=== PATIENT | male | born 1965 | race African-American/Black ===

== ENCOUNTER 2017-06-27 22:08 | Inpatient (IN) | payer MEDICAID, OTHER ==
[~2017-06-27] VITALS: Ht 170.2 cm; Wt 58.1 kg
[~2017-06-27 22:08] MED LIST: DIVA500T35 PO; OLAN10TA6 PO; TOPI25 PO
[2017-06-28] MEDS ORDERED: ZOLPIDEM TARTRATE 10 MG TABLET PO PRN (00:15)
[2017-06-28] MEDS ORDERED: LORazepam 2 MG TABLET PO PRN (00:15)
[2017-06-28] MEDS ORDERED: OLANZapine 5 MG RAPDIS TABLET PO PRN (00:15)
[2017-06-28 00:29] LABS: BASOPHILS # (AUTO) 0.03 K/uL (0.00-0.20); BASOPHILS % (AUTO) 0.3 % (0.0-2.0); EOSINOPHILS % (AUTO) 1.16 % (1.0-6.0); HEMATOCRIT 41.4 % (41-53); HEMOGLOBIN 13.6 g/dL (13.5-17.5); LYMPHOCYTES # (AUTO) 1.7 K/uL (1.0-4.8); LYMPHOCYTES % (AUTO) 19.9 % (22.0-44.0); MEAN CORPUSCULAR HEMOGLOBIN 28.8 pg (26.0-34.0); MEAN CORPUSCULAR HGB CONC 32.9 G/dL (31.0-37.0); MEAN CORPUSCULAR VOLUME 88 fL (80-100); MONOCYTES % (AUTO) 12.1 % (2.0-9.0); NEUTROPHILS # (AUTO) 5.6 K/uL (1.8-7.7); NEUTROPHILS % (AUTO) 66.6 % (40.0-70.0); PLATELET COUNT (AUTO) 298 K/uL (150-450); RED BLOOD CELL COUNT(AUTO) 4.72 MIL/uL (4.50-5.90)
[2017-06-28 00:36] LABS: ANION GAP 7 mmol/L (8-16); CALCIUM, TOTAL 9.3 mg/dL (8.8-10.5); CARBON DIOXIDE 29 mmol/L (22-29); CHLORIDE 101 mmol/L (98-107); CREATININE 0.44 mg/dL (0.60-1.30); GLOMERULAR FILTR. RATE CALC > 60 mL/min (>60); GLUCOSE,RANDOM 86 mg/dL (70-110); POTASSIUM 3.8 mmol/L (3.5-5.1); SODIUM SERUM 137 mmol/L (136-145); UREA NITROGEN, BLOOD 9 mg/dL (7-18)
[2017-06-28] MEDS ORDERED: LORazepam 2 MG TABLET PO ONE (00:45)
[2017-06-28] MEDS ORDERED: DiphenhydrAMINE HCL 25 MG CAPSULE PO ONE (00:45)
[2017-06-28] MEDS ORDERED: OLANZapine 5 MG TABLET PO ONE (00:45)
[2017-06-28 00:47] LABS: ALANINE AMINOTRANSFERASE 45 U/L (12-78); ALBUMIN 3.7 g/dL (3.4-5.0); ALKALINE PHOSPHATASE 100 U/L (46-116); ASPARTATE AMINOTRANSFERASE 25 U/L (15-37); BILIRUBIN,TOTAL 0.6 mg/dL (0.1-1.0); TOTAL PROTEIN, SERUM 7.3 g/dL (6.4-8.2)
[2017-06-28 02:11] LABS: CHOL/HDL RATIO 2.7 (4.2-7.3); CHOLESTEROL 186 mg/dL (131-200); HDL CHOLESTEROL 69 mg/dL (40-60); LDL CHOL (CALC.) 108 mg/dL (0-130); TRIGLYCERIDES 46 mg/dL (15-150)
[2017-06-28] MEDS ORDERED: MAG HYDROX/AL HYDROX/SIMETH ES 30 ML SUSPENSION UDCUP PO PRN (11:00)
[2017-06-28] MEDS ORDERED: MAGNESIUM HYDROXIDE SUSPENSION 30 ML UDCUP PO PRN (11:00)
[2017-06-28] MEDS ORDERED: ACETAMINOPHEN 325 MG TABLET PO PRN (11:00)
[2017-06-28] MEDS ORDERED: HydrOXYzine PAMOATE 50 MG CAPSULE PO PRN (11:00)
[2017-06-28] MEDS ORDERED: GuaiFENesin/D-METHORPHAN [SUGAR-FREE] 200-20MG/10 ML SYRUP UDCUP PO PRN (11:00)
[2017-06-28] MEDS ORDERED: PROMETHAZINE HCL 25 MG TABLET PO PRN (11:00)
[2017-06-28] MEDS ORDERED: TUBERCULIN, PURIFIED PROTEIN DERIVATIVE 5 TU/0.1 ML SYG ID ONE (11:00)
[2017-06-28] MEDS ORDERED: LOPERAMIDE HCL 2 MG CAPSULE PO PRN (11:00)
[2017-06-28] MEDS ORDERED: INFLUENZA VIRUS VACCINE QVS 2017-18 (3YR+)/PF 60 MCG/0.5 ML SYRINGE IM ONE (15:15)
[2017-06-28] MEDS ORDERED: PNEUMOCOCCAL VACCINE POLYVALENT 0.5 ML VIAL [PPSV23] IM ONE (15:15)
[2017-06-28 16:00] VITALS: BP 108/78
[2017-06-28] MEDS: THIAMINE HCL 100 MG TABLET PO SCH (17:25)
[2017-06-28] MEDS: DIVALPROEX SODIUM 500 MG ER TABLET PO SCH ×2 (21:00→21:06)
[2017-06-28] MEDS: OLANZapine 5 MG RAPDIS TABLET PO SCH ×2 (21:00→21:06)
[2017-06-29 06:19] VITALS: BP 113/80
[2017-06-29] MEDS: MULTIVITAMINS WITH MINERALS, THERAPEUTIC TABLET PO SCH (08:54)
[2017-06-29] MEDS: THIAMINE HCL 100 MG TABLET PO SCH ×2 (08:55→16:19)
[2017-06-29] MEDS: FOLIC ACID 1 MG TABLET PO SCH (08:55)
[2017-06-29] MEDS: NALTREXONE HCL 50 MG TABLET PO SCH (08:55)
[2017-06-29 09:00] VITALS: BP 121/78
[2017-06-29 16:00] VITALS: BP 140/90
[2017-06-29] MEDS: DIVALPROEX SODIUM 500 MG ER TABLET PO SCH ×2 (20:26→21:00)
[2017-06-29] MEDS: OLANZapine 5 MG RAPDIS TABLET PO SCH ×2 (20:26→21:00)
[2017-06-29] MEDS ORDERED: OLANZapine 5 MG RAPDIS TABLET PO SCH (21:00)
[2017-06-30] MEDS: FOLIC ACID 1 MG TABLET PO SCH (09:46)
[2017-06-30] MEDS: NALTREXONE HCL 50 MG TABLET PO SCH (09:46)
[2017-06-30] MEDS: THIAMINE HCL 100 MG TABLET PO SCH ×2 (09:46→17:34)
[2017-06-30] MEDS: MULTIVITAMINS WITH MINERALS, THERAPEUTIC TABLET PO SCH (09:46)
[2017-06-30 16:30] VITALS: BP 140/86
[2017-06-30] MEDS: OLANZapine 5 MG RAPDIS TABLET PO SCH (21:02)
[2017-06-30] MEDS: DIVALPROEX SODIUM 500 MG ER TABLET PO SCH (21:02)
[2017-07-01 07:04] VITALS: BP 197/130
[2017-07-01] MEDS ORDERED: CloNIDine HCL 0.1 MG TABLET PO PRN (07:45)
[2017-07-01] MEDS: THIAMINE HCL 100 MG TABLET PO SCH ×2 (09:07→17:34)
[2017-07-01] MEDS: MULTIVITAMINS WITH MINERALS, THERAPEUTIC TABLET PO SCH (09:07)
[2017-07-01] MEDS: AmLODIPine BESYLATE 10 MG TABLET PO SCH (09:07)
[2017-07-01] MEDS: NALTREXONE HCL 50 MG TABLET PO SCH (09:07)
[2017-07-01] MEDS: FOLIC ACID 1 MG TABLET PO SCH (09:07)
[2017-07-01 09:29] VITALS: BP 129/79
[2017-07-01 16:19] VITALS: BP 125/84
[2017-07-01] MEDS: DIVALPROEX SODIUM 500 MG ER TABLET PO SCH (21:24)
[2017-07-01] MEDS: OLANZapine 5 MG RAPDIS TABLET PO SCH (21:24)
[2017-07-02 01:26] VITALS: BP 121/83
[2017-07-02 08:29] VITALS: BP 141/97
[2017-07-02] MEDS: MULTIVITAMINS WITH MINERALS, THERAPEUTIC TABLET PO SCH (09:09)
[2017-07-02] MEDS: NALTREXONE HCL 50 MG TABLET PO SCH (09:09)
[2017-07-02] MEDS: AmLODIPine BESYLATE 10 MG TABLET PO SCH (09:09)
[2017-07-02] MEDS: THIAMINE HCL 100 MG TABLET PO SCH ×2 (09:09→16:55)
[2017-07-02] MEDS: FOLIC ACID 1 MG TABLET PO SCH (09:09)
[2017-07-02 17:13] VITALS: BP 140/82
[2017-07-02] MEDS: DIVALPROEX SODIUM 500 MG ER TABLET PO SCH ×2 (21:00→21:49)
[2017-07-02] MEDS: OLANZapine 5 MG RAPDIS TABLET PO SCH ×2 (21:00→21:49)
[2017-07-03 06:44] VITALS: BP 111/66
[2017-07-03 08:37] VITALS: BP 111/74
[2017-07-03] MEDS: FOLIC ACID 1 MG TABLET PO SCH (09:27)
[2017-07-03] MEDS: AmLODIPine BESYLATE 10 MG TABLET PO SCH (09:27)
[2017-07-03] MEDS: MULTIVITAMINS WITH MINERALS, THERAPEUTIC TABLET PO SCH (09:27)
[2017-07-03] MEDS: THIAMINE HCL 100 MG TABLET PO SCH ×2 (09:27→16:11)
[2017-07-03] MEDS: NALTREXONE HCL 50 MG TABLET PO SCH (09:27)
[2017-07-03 16:00] VITALS: BP 137/90
[2017-07-03] MEDS: DIVALPROEX SODIUM 500 MG ER TABLET PO SCH (20:47)
[2017-07-03] MEDS: OLANZapine 5 MG RAPDIS TABLET PO SCH (20:48)
[2017-07-04 06:03] VITALS: BP 130/86
[2017-07-04] MEDS: AmLODIPine BESYLATE 10 MG TABLET PO SCH (09:03)
[2017-07-04] MEDS: THIAMINE HCL 100 MG TABLET PO SCH ×2 (09:03→16:23)
[2017-07-04] MEDS: NALTREXONE HCL 50 MG TABLET PO SCH (09:03)
[2017-07-04] MEDS: FOLIC ACID 1 MG TABLET PO SCH (09:03)
[2017-07-04] MEDS: MULTIVITAMINS WITH MINERALS, THERAPEUTIC TABLET PO SCH (09:03)
[2017-07-04 10:03] VITALS: BP 107/65
[2017-07-04 16:14] VITALS: BP 108/73
[2017-07-04] MEDS: DIVALPROEX SODIUM 500 MG ER TABLET PO SCH (21:20)
[2017-07-04] MEDS: OLANZapine 10 MG RAPDIS TABLET PO SCH (21:21)
[2017-07-05 06:27] VITALS: BP 105/68
[2017-07-05 08:22] VITALS: BP 105/70
[2017-07-05] MEDS: NALTREXONE HCL 50 MG TABLET PO SCH (09:17)
[2017-07-05] MEDS: MULTIVITAMINS WITH MINERALS, THERAPEUTIC TABLET PO SCH (09:17)
[2017-07-05] MEDS: FOLIC ACID 1 MG TABLET PO SCH (09:17)
[2017-07-05] MEDS: AmLODIPine BESYLATE 10 MG TABLET PO SCH (09:17)
[2017-07-05] MEDS: THIAMINE HCL 100 MG TABLET PO SCH ×2 (09:17→16:55)
[2017-07-05 16:39] VITALS: BP 110/52
[2017-07-05] MEDS: DIVALPROEX SODIUM 500 MG ER TABLET PO SCH (20:34)
[2017-07-05] MEDS: OLANZapine 10 MG RAPDIS TABLET PO SCH (20:34)
[2017-07-06 00:15] VITALS: BP 105/65
[2017-07-06 08:16] VITALS: BP 120/70
[2017-07-06] MEDS: FOLIC ACID 1 MG TABLET PO SCH (09:08)
[2017-07-06] MEDS: NALTREXONE HCL 50 MG TABLET PO SCH (09:08)
[2017-07-06] MEDS: MULTIVITAMINS WITH MINERALS, THERAPEUTIC TABLET PO SCH (09:08)
[2017-07-06] MEDS: THIAMINE HCL 100 MG TABLET PO SCH ×2 (09:08→16:42)
[2017-07-06] MEDS: AmLODIPine BESYLATE 10 MG TABLET PO SCH (09:08)
[2017-07-06] MEDS: OLANZapine 10 MG RAPDIS TABLET PO SCH (20:05)
[2017-07-06] MEDS: DIVALPROEX SODIUM 500 MG ER TABLET PO SCH (20:05)
[2017-07-07 07:04] VITALS: BP 110/68
[2017-07-07] MEDS ORDERED: OLAN10TA6 PO (08:01)
[2017-07-07] MEDS ORDERED: AMLO-512 PO (08:01)
[2017-07-07] MEDS ORDERED: NALT50TA6 PO (08:01)
[2017-07-07 08:19] VITALS: BP 111/72
[2017-07-07] MEDS: MULTIVITAMINS WITH MINERALS, THERAPEUTIC TABLET PO SCH (08:24)
[2017-07-07] MEDS: FOLIC ACID 1 MG TABLET PO SCH (08:24)
[2017-07-07] MEDS: THIAMINE HCL 100 MG TABLET PO SCH ×2 (08:24→16:06)
[2017-07-07] MEDS: NALTREXONE HCL 50 MG TABLET PO SCH (08:24)
[2017-07-07] MEDS: AmLODIPine BESYLATE 10 MG TABLET PO SCH (08:24)
[2017-07-07 16:05] VITALS: BP 100/61
== END 2017-07-07 16:10 | disposition home or self-care (01) | DRG 750 ==
LOC: EMS 22:32 → B2S 06-28 09:45
PROVIDERS: ADMIT Psychiatry & Neurology Psychiatry; ATTEND Psychiatry & Neurology Psychiatry
PROC: 3E0234Z Introduction of Serum, Toxoid and Vaccine into Muscle, Percutaneous Approach (ICD-10-PCS; principal; 2017-06-28)
DX: F20.0 Paranoid schizophrenia (principal); Z91.14 Patient's other noncompliance with medication regimen; I10 Essential (primary) hypertension; F17.210 Nicotine dependence, cigarettes, uncomplicated; F15.90 Other stimulant use, unspecified, uncomplicated; F14.90 Cocaine use, unspecified, uncomplicated; F12.90 Cannabis use, unspecified, uncomplicated; Z79.899 Other long term (current) drug therapy; Z88.8 Allergy status to other drugs, medicaments and biological substances; Z23 Encounter for immunization
CPT/HCPCS: 99285; G0480

== ENCOUNTER 2017-11-25 16:02 | Emergency (ER) | payer MEDICAID, OTHER ==
[~2017-11-25] VITALS: Ht 170.2 cm; Wt 70.0 kg
[~2017-11-25 16:02] MED LIST changes: +AMLO-512 PO; +NALT50TA6 PO; -TOPI25 PO
[2017-11-25 16:09] VITALS: BP 120/76
[2017-11-25 18:04] LABS: AMPHET/METH SCREEN,URINE NEGATIVE (NEGATIVE); BARBITURATE SCREEN, URINE NEGATIVE (NEGATIVE); BENZODIAZEPINES SCREEN,URINE NEGATIVE (NEGATIVE); CANNABINOID SCREEN,URINE NEGATIVE (NEGATIVE); COCAINE SCREEN,URINE NEGATIVE (NEGATIVE); METHADONE SCREEN, URINE NEGATIVE (NEGATIVE); OPIATE SCREEN,URINE NEGATIVE (NEGATIVE)
[2017-11-25 18:09] LABS: PHENCYCLIDINE SCREEN,URINE NEGATIVE (NEGATIVE)
[2017-11-25 18:13] LABS: APPEARANCE,URINE CLOUDY (CLEAR); BILIRUBIN,URINE NEGATIVE (NEGATIVE); GLUCOSE, URINE (UA) NEGATIVE (NEGATIVE); KETONES,URINE NEGATIVE (NEGATIVE); LEUKOCYTE ESTERASE ,URINE NEGATIVE (NEGATIVE); NITRATE,URINE NEGATIVE (NEGATIVE); OCCULT BLOOD,URINE NEGATIVE (NEGATIVE); PH,URINE 5.5 (5.0-8.0); PROTEIN,URINE NEGATIVE (NEGATIVE); UROBILINOGEN,URINE 0.2 mg/dL (<=1.0)
[2017-11-25 18:41] LABS: BASOPHILS % (AUTO) 0.4 % (0.0-2.0); EOSINOPHILS % (AUTO) 0.1 % (1.0-6.0); HEMATOCRIT 45.6 % (41-53); HEMOGLOBIN 15.5 g/dL (13.5-17.5); LYMPHOCYTES # (AUTO) 1.2 K/uL (1.0-4.8); LYMPHOCYTES % (AUTO) 10.4 % (22.0-44.0); MEAN CORPUSCULAR HEMOGLOBIN 28.7 pg (26.0-34.0); MEAN CORPUSCULAR VOLUME 85 fL (80-100); MONOCYTES # (AUTO) 1.4 K/uL (0.1-1.0); MONOCYTES % (AUTO) 12.1 % (2.0-9.0); NEUTROPHILS # (AUTO) 8.6 K/uL (1.8-7.7); PLATELET COUNT (AUTO) 340 K/uL (150-450); RED BLOOD CELL COUNT(AUTO) 5.39 MIL/uL (4.50-5.90); RED CELL DISTRIBUTION WIDTH 13.8 % (11.5-14.5)
[2017-11-25 18:51] LABS: ANION GAP 7 mmol/L (8-16); CALCIUM, TOTAL 9.5 mg/dL (8.8-10.5); CARBON DIOXIDE 27 mmol/L (22-29); CHLORIDE 99 mmol/L (98-107); CREATININE 0.84 mg/dL (0.60-1.30); GLOMERULAR FILTR. RATE CALC > 60 mL/min (>60); GLUCOSE,RANDOM 107 mg/dL (70-110); POTASSIUM 3.6 mmol/L (3.5-5.1); SODIUM SERUM 133 mmol/L (136-145); UREA NITROGEN, BLOOD 12 mg/dL (7-18)
[2017-11-25 18:57] LABS: ALANINE AMINOTRANSFERASE 68 U/L (12-78); ALBUMIN 3.5 g/dL (3.4-5.0); ALKALINE PHOSPHATASE 89 U/L (46-116); ASPARTATE AMINOTRANSFERASE 24 U/L (15-37); BILIRUBIN,TOTAL 0.6 mg/dL (0.1-1.0); LIPASE 289 U/L (73-393); TOTAL PROTEIN, SERUM 7.3 g/dL (6.4-8.2)
[2017-11-25] MEDS ORDERED: ONDANSETRON HCL 4 MG TABLET PO ONE (19:45)
== END 2017-11-25 19:48 | disposition home or self-care (01) ==
LOC: EMS 16:05
DX: R11.2 Nausea with vomiting, unspecified (principal); F19.10 Other psychoactive substance abuse, uncomplicated; I10 Essential (primary) hypertension; F17.210 Nicotine dependence, cigarettes, uncomplicated; F12.90 Cannabis use, unspecified, uncomplicated; F19.90 Other psychoactive substance use, unspecified, uncomplicated; F14.90 Cocaine use, unspecified, uncomplicated; Z76.0 Encounter for issue of repeat prescription; Z88.8 Allergy status to other drugs, medicaments and biological substances
CPT/HCPCS: 36415; 80053; 80307; 81003; 83690; 85025; 99284; Q0162

== ENCOUNTER 2018-05-27 08:35 | Emergency (ER) | payer OTHER ==
[~2018-05-27] VITALS: Ht 170.2 cm; Wt 70.9 kg
[2018-05-27 09:08] VITALS: BP 156/118
[2018-05-27] MEDS ORDERED: IBUPROFEN 600 MG TABLET PO ONE (10:30)
[2018-05-27] MEDS ORDERED: SULFAMETHOX/TRIMETH DS 800-160 MG/TABLET PO ONE (10:30)
== END 2018-05-27 12:26 | disposition home or self-care (01) ==
LOC: EMS 08:36
DX: S80.861A Insect bite (nonvenomous), right lower leg, initial encounter (principal); L08.9 Local infection of the skin and subcutaneous tissue, unspecified; F20.9 Schizophrenia, unspecified; E11.9 Type 2 diabetes mellitus without complications; I10 Essential (primary) hypertension; F12.90 Cannabis use, unspecified, uncomplicated; F15.90 Other stimulant use, unspecified, uncomplicated; F17.210 Nicotine dependence, cigarettes, uncomplicated; Z88.8 Allergy status to other drugs, medicaments and biological substances; Z59.0 Homelessness; W57.XXXA Bitten or stung by nonvenomous insect and other nonvenomous arthropods, initial encounter; Y93.89 Activity, other specified; Y92.89 Other specified places as the place of occurrence of the external cause; Y99.8 Other external cause status